=== PATIENT | male | born 1995 | race Caucasian/White ===

== ENCOUNTER 2017-05-04 17:47 | Emergency (ER) | payer BC ==
--- NOTE | 2017-05-04 18:18 | ER Document Report ---
ED Psych Disorder / Suicide - General Chief Complaint: Suicidal Ideation Stated Complaint: SUICIDAL IDEATIONS Time Seen by Provider: 05/04/17 18:15 Mode of Arrival: Ambulatory Information source: Patient, Relative TRAVEL OUTSIDE OF THE [place] IN LAST 30 DAYS: No - HPI Patient complains to provider of: Suicidal ideation Onset was: Gradual Quality of pain: No pain Suicide Risk Factors: Depressed, Male, No spouse Situational problems related to: Significant other Associated symptoms: Depressed, Flat affect Similar symptoms previously: No Recently seen / treated by doctor: No Notes: Patient is a 22-year-old male who presents to the emergency room today accompanied by his father and 2 brothers with complaints of having suicidal thoughts over the past few weeks since breaking up with his girlfriend of 2 years, patient reports he is having a rough time adjusting to this change in his been having very consistent thoughts of self-harm, he does not currently have an active plan to harm himself but he voiced these concerns to family members who brought him in for an evaluation, patient has no history of mental illness, no previous suicide attempts, he is not currently on any medications, there is a strong family history of suicide with an uncle killing his and then killing himself and a nephew who also killed himself - Related Data Allergies/Adverse Reactions: No Known Allergies Allergy (Verified 05/04/17 18:00) Past Medical History - General Information source: Patient - Social History Smoking Status: Unknown if Ever Smoked Family History: Reviewed & Not Pertinent Patient has suicidal ideation: Yes Patient has homicidal ideation: No Renal/ Medical History: Denies: Hx Peritoneal Dialysis Past Surgical History: Reports: Hx Orthopedic Surgery - right knee - Immunizations Hx Diphtheria, Pertussis, Tetanus Vaccination: Yes Review of Systems - Review of Systems Constitutional: No symptoms reported EENT: No symptoms reported Cardiovascular: No symptoms reported Respiratory: No symptoms reported Gastrointestinal: No symptoms reported Genitourinary: No symptoms reported Male Genitourinary: No symptoms reported Musculoskeletal: No symptoms reported Skin: No symptoms reported Hematologic/Lymphatic: No symptoms reported Neurological/Psychological: See HPI -: Yes All other systems reviewed and negative Physical Exam - Vital signs Vitals: Temp Pulse Resp BP Pulse Ox 98.5 F 74 22 H 133/58 H 99 05/04/17 18:00 05/04/17 18:00 05/04/17 18:00 05/04/17 18:00 05/04/17 18:00 Interpretation: Normal - General General appearance: Appears well, Alert - HEENT Head: Normocephalic, Atraumatic Eyes: Normal Pupils: PERRL - Respiratory Respiratory status: No respiratory distress Chest status: Nontender Breath sounds: Normal Chest palpation: Normal - Cardiovascular Rhythm: Regular Heart sounds: Normal auscultation Murmur: No - Abdominal Inspection: Normal Distension: No distension Bowel sounds: Normal Tenderness: Nontender Organomegaly: No organomegaly - Back Back: Normal, Nontender - Extremities General upper extremity: Normal inspection, Nontender, Normal color, Normal ROM , Normal temperature General lower extremity: Normal inspection, Nontender, Normal color, Normal ROM , Normal temperature, Normal weight bearing. No: Gely's sign - Neurological Neuro grossly intact: Yes Cognition: Normal Orientation: AAOx4 [place] Coma Scale Eye Opening: Spontaneous [place] Coma Scale Verbal: Oriented [place] Coma Scale Motor: Obeys Commands [place] Coma Scale Total: 15 Speech: Normal Motor strength normal: LUE, RUE, LLE, RLE Sensory: Normal - Psychological Associated symptoms: Depressed, Flat affect - Skin Skin Temperature: Warm Skin Moisture: Dry Skin Color: Normal Course - Re-evaluation Re-evalutation: 05/04/17 19:30 Patient with persistent suicidal thoughts after recent breakup with his girlfriend of 2 years, strong family history of suicide in uncle and cousin or nephew, no current treatment, family members are quite concerned about his well- being and brought him to the emergency room for evaluation, IVC paperwork was completed on patient to ensure his safety, patient will remain in the emergency room tonight for further evaluation and recommendations by mental health team in the morning, he is otherwise medically stable for transport or discharge - Vital Signs Vital signs: Temp Pulse Resp BP Pulse Ox 98.5 F 74 22 H 133/58 H 99 05/04/17 18:00 05/04/17 18:00 05/04/17 18:00 05/04/17 18:00 05/04/17 18:00 - Laboratory Result Diagrams: 05/04/17 18:44 05/04/17 18:44 Laboratory results interpreted by me: 05/04/17 18:44 Urine Urobilinogen 2.0 H - EKG Interpretation by Me EKG shows normal: Sinus rhythm Rate: Normal Rhythm: NSR [place]/QRS: IVCD Discharge - Discharge Clinical Impression: Suicidal ideations Condition: Stable Disposition: PSYCH HOSP/UNIT
[2017-05-04 19:15] LABS: ABSOLUTE BASOPHILS # (AUTO) 0.1 10^3/uL (0.0-0.2); ABSOLUTE EOSINOPHILS # (AUTO) 0.5 10^3/uL (0.0-0.6); ABSOLUTE LYMPHOCYTES (AUTO) 1.9 10^3/uL (0.5-4.7); ABSOLUTE MONOCYTES (AUTO) 0.8 10^3/uL (0.1-1.4); ABSOLUTE NEUT (AUTO) 5.9 10^3/uL (1.7-8.2); BASOPHILS % (AUTO) 0.8 % (0-2); HEMOGLOBIN 16.3 g/dL (13.5-17.0); HGB HCT DIFFERENCE 1.9; LYMPHOCYTES % (AUTO) 20.9 % (13-45); MEAN CORPUSCULAR HEMOGLOBIN 29.9 pg (27.0-33.4); MEAN CORPUSCULAR HGB CONC 34.6 g/dL (32.0-36.0); MEAN CORPUSCULAR VOLUME 87 fl (80-97); MONOCYTES % (AUTO) 8.9 % (3-13); RED BLOOD COUNT 5.43 10^6/uL (4.35-5.55); RED CELL DISTRIBUTION WIDTH 13.3 % (11.5-14.0); SEGMENTED NEUTROPHILS % (AUTO) 64.4 % (42-78); WHITE BLOOD COUNT 9.1 10^3/uL (4.0-10.5)
[2017-05-04 19:24] LABS: AMORPHOUS SEDIMENT,URINE 2+ /HPF; APPEARANCE,URINE CLOUDY; BILIRUBIN,URINE NEGATIVE (NEGATIVE); GLUCOSE, URINE NEGATIVE (NEGATIVE); KETONES,URINE NEGATIVE (NEGATIVE); LEUKOCYTE ESTERASE,URINE NEGATIVE (NEGATIVE); NITRITE,URINE NEGATIVE (NEGATIVE); PROTEIN,URINE NEGATIVE (NEGATIVE); URINE SPECIFIC GRAVITY 1.015
[2017-05-04 19:28] LABS: ALANINE AMINOTRANSFERASE 33 U/L (21-72); ALBUMIN 4.6 g/dL (3.5-5.0); ALKALINE PHOSPHATASE 87 U/L (38-126); ANION GAP 13 (5-19); ASPARTATE AMINO TRANSFERASE 20 U/L (17-59); BILIRUBIN,DIRECT 0.3 mg/dL (0.0-0.4); BILIRUBIN,TOTAL 0.6 mg/dL (0.2-1.3); BLOOD UREA NITROGEN 9 mg/dL (7-20); CALCIUM 9.9 mg/dL (8.4-10.2); CARBON DIOXIDE 26 mmol/L (22-30); CHLORIDE 104 mmol/L (98-107); CREATININE RESULT 0.88 mg/dL (0.52-1.25); GLUCOSE 101 mg/dL (75-110); POTASSIUM 4.4 mmol/L (3.6-5.0); SODIUM 143.3 mmol/L (137-145); TOTAL PROTEIN 7.4 g/dL (6.3-8.2)
[2017-05-04 19:32] LABS: ALCOHOL < 10 mg/dL (NONE DETECTED)
[2017-05-04 19:35] LABS: URINE BARBITURATES SCREEN NEGATIVE; URINE METHADONE SCREEN NEGATIVE; URINE OPIATES LOW NEGATIVE; URINE PHENCYCLIDINE SCREEN NEGATIVE
--- NOTE | 2017-05-04 21:30 | EKG REPORT ---
SEVERITY:- ABNORMAL ECG - SINUS RHYTHM NONSPECIFIC INTRAVENTRICULAR CONDUCTION DELAY : Confirmed by: Elias Walter MD 04-May-2017 21:29:47
[2017-05-04] MEDS ORDERED: LORAZEPAM 1 MG TABLET PO SCH (22:00)
--- NOTE | 2017-05-05 09:44 | ER Document Report ---
ED Psych Disorder / Suicide - General Mode of Arrival: Ambulatory Information source: Patient, Parent - father TRAVEL OUTSIDE OF THE [place] IN LAST 30 DAYS: No - HPI Patient complains to provider of: Suicidal ideation Onset: Last week Suicide Risk Factors: Depressed, Male Situational problems related to: Significant other - fiance of 2 years terminated relationship Normal mood: No Associated symptoms: Depressed, Flat affect Similar symptoms previously: No Recently seen / treated by doctor: No <CHASE HOFFMANN - Last Filed: 05/05/17 09:47> <MELISSA PEREZ - Last Filed: 05/05/17 10:01> - General Chief Complaint: Suicidal Ideation Stated Complaint: SUICIDAL IDEATIONS Time Seen by Provider: 05/04/17 18:15 - HPI Notes: Patient is a 22-year-old male who presented via family members last night due to concerns over "bad thoughts swirling in my mind." Patient states this is the first time in his life he has felt suicidal. He states he does not want to by suicide, but also states he does not see a way out. Discussed with patient the etiology of his suicidal thoughts, which he attributes to a recent separation from his fikerline. He states he resided with his fikerline and her child whom he lives as his own. Patient reports he suspected she was having an affair and confronted her. Patient reports the rajat told him she needed space so he moved out and in with his family. Patient reports he did not expect to be this distraught. Patient states his life as he thought it was going to be has completely changed. Patient does state he still goes to work full-time at [employer]. Discussed with patient how he deals with his emotions, which he states he usually does not. Discussed with patient the prospect of engaging in outpatient counseling, but she states he was hesitant. Discussed his thoughts and feelings surrounding counseling and provided psychoeducation as to how it may help in regards to establishing coping skills and assist in moving beyond his initial grief over the end of the relationship. Discussed with patient that counseling can be challenging but also rewarding. Patient did state he would be willing to go to counseling and give it a chance. Patient provided verbal consent to speak with his father. Patient denies any prior mental health history and denies any mental health history within his family however reports there is a history of murder suicide from his uncle who killed his and eventually committed suicide as well as his son. Patient denies wanting to by suicide and states he is willing to engage in outpatient counseling. Father, Rigo Best states: the patient has not been himself for over a year and has put everything he has into this relationship. Father states this is a pattern for the patient and girlfriend, to accuse her of cheating, break up, then get back together with no trust. Father states the patient is currently residing in his home (with mother) and states there are no firearms in the home. Father states the patient has good days and bad days. Example, Friday he was up doing things and then yesterday laid in bed all day. Father states he finally disclosed to the family that he thought about suicide. Father states he does not think that he would follow through, and knows that the patient did not have any plans in regards to suicide method. Father states the patient has been hesitant to open up and go to counseling, but states he feels that is what he needs. Father states if the patient is able to be discharged, he will provide increased supervision and support and return if any symptoms worsen. Patient is alert and oriented. Mood is depressed with flat affect. Patient reports suicidal ideations but denies intent or means. Patient denies homicidal ideations, intent, plan, means. Patient denies A/VH; delusions not noted. Thought processes were organized but guarded. Conversational speech was within normal limits for rate, tone, and prosody. Intellectual abilities were estimated within average range. Attention and focus were fair. Insight, judgment, impulse control were poor to fair. Unspecified depressive disorder Patient's overall presenting symptoms are similar to that of a depressive disorder and cause significant distress in most domains of his life. At this time and in the setting there is not enough information to make a more specific diagnosis. Patient is psychiatrically cleared for discharge. Patient is recommended for recent IVC to discharge directly to his father. Patient and family are in agreement to the following safety precautions and plan of care: 1) Follow up with [facility] 05/05/17 TONIGHT at 6pm 2) Do not have any access to weapons 3) Continue work and set goals 4) Focus on future and begin to identify what he wants his future to include 5) Communicate with family re: his symptoms 6) Check in via text/phone with father throughout the day and evening 7) Return if symptoms worsen (CHASE HOFFMANN) - Related Data Allergies/Adverse Reactions: No Known Allergies Allergy (Verified 05/04/17 18:00) Past Medical History - General Information source: Patient, Parent - Social History Smoking Status: Unknown if Ever Smoked Cigarette use (# per day): No Chew tobacco use (# tins/day): No Smoking Education Provided: No Family History: Reviewed & Not Pertinent Patient has suicidal ideation: Yes - passive, no plan Patient has homicidal ideation: No Renal/ Medical History: Denies: Hx Peritoneal Dialysis Past Surgical History: Reports: Hx Orthopedic Surgery - right knee - Immunizations Hx Diphtheria, Pertussis, Tetanus Vaccination: Yes <CHASE HOFFMANN - Last Filed: 05/05/17 09:47> - Vital signs Vitals: Temp Pulse Resp BP Pulse Ox 98.5 F 74 22 H 133/58 H 99 05/04/17 18:00 05/04/17 18:00 05/04/17 18:00 05/04/17 18:00 05/04/17 18:00 Course - Laboratory Result Diagrams: 05/04/17 18:44 05/04/17 18:44 <CHASE HOFFMANN - Last Filed: 05/05/17 09:47> - Laboratory Result Diagrams: 05/04/17 18:44 05/04/17 18:44 <MELISSA PEREZ - Last Filed: 05/05/17 10:01> - Re-evaluation Re-evalutation: 05/05/17 09:58 Patient seen on morning rounds. He is not having suicidal thoughts. He has a supportive family. We have arranged for follow-up at counseling. Patient will be discharged home. (MELISSA PEREZ) - Vital Signs Vital signs: Temp Pulse Resp BP Pulse Ox 98.0 F 70 17 127/63 H 100 05/05/17 06:00 05/05/17 06:00 05/05/17 06:00 05/05/17 06:00 05/05/17 06:00 - Laboratory Laboratory results interpreted by me: 05/04/17 05/04/17 18:44 18:44 Urine Urobilinogen 2.0 H Salicylates < 1.0 L Acetaminophen < 10 L Discharge <SHUN,CHASE - Last Filed: 05/05/17 09:47> <MELISSA PEREZ - Last Filed: 05/05/17 10:01> - Discharge Clinical Impression: Suicidal ideations Condition: Stable Disposition: HOME, SELF-CARE Additional Instructions: Depression Your evaluation reveals that you have mental depression. While symptoms may be vague, they often include disturbance of sleep, fatigue, loss of appetite , and general loss of interest in life. While depression may be a side effect of drugs, or a reaction to a major change in your life, many cases have no known cause. If depression is acute, and related to a major loss in your life, you can expect it to clear completely with time. If you have been depressed a long time , are prone to repeated bouts of depression or low mood, or have been thinking of suicide, get help. Depression can be treated with anti-depressant medication and counselling. Long-term depression will often take a few weeks to clear, even with appropriate medication. Follow-up care is important. Contact your physician, the hospital emergency center, crisis line, or your counsellor if you are losing control or having self-destructive thoughts. We have scheduled you an appointment with [facility] for [facility] at 6 PM. Please arrive at 530 to complete paperwork and begin the process. You have been provided a list of resources to assist you, to include mobile crisis. Please return if your symptoms worsen. Forms: Return to Work Referrals: [facility] [Provider Group] - 05/05/17 5:30 pm
[2017-05-05 10:30] VITALS: BP 122/65
== END 2017-05-05 10:30 | disposition home or self-care (01) ==
LOC: ER 17:47
DX: R45.851 Suicidal ideations (principal); F32.9 Major depressive disorder, single episode, unspecified
CPT/HCPCS: 36415; 80053; 80307; 81001; 85025; 93005; 93010; 99285

== ENCOUNTER → 2017-06-04 | Outpatient (CLI) | payer BC | LOC: OD 09:11 | PROVIDERS: ATTEND Nurse Practitioner Psychiatric/Mental Health | DX: F33.9 Major depressive disorder, recurrent, unspecified (principal) | CPT/HCPCS: 36415; 80164 ==

== ENCOUNTER → 2017-06-26 | Outpatient (CLI) | payer BC | LOC: OD 07:42 | PROVIDERS: ATTEND Nurse Practitioner Psychiatric/Mental Health | DX: F33.9 Major depressive disorder, recurrent, unspecified (principal) | CPT/HCPCS: 36415; 80164 ==

== ENCOUNTER 2017-11-10 18:39 | Emergency (ER) | payer BC ==
[2017-11-10] MEDS ORDERED: IBUPROFEN 800 MG TABLET PO ONE (20:19)
--- NOTE | 2017-11-10 20:19 | ER Document Report ---
HPI - HPI Pain Level: 4 Context: Patient is a 22-year-old male presents emergency department complaining of sore throat on and off for the past 7 days. Patient denies any cough, seasonal allergies. Denies any recent sick contacts. States it hurts mostly when he swallows. Denies any fevers, chills, neck swelling Past Medical History - Social History Smoking Status: Current Every Day Smoker Family History: Reviewed & Not Pertinent Renal/ Medical History: Denies: Hx Peritoneal Dialysis Psychiatric Medical History: Reports: Hx Borderline Personality Disorder - diagnosed 05/15/2017, Hx Depression Past Surgical History: Reports: Hx Orthopedic Surgery - right knee - Immunizations Hx Diphtheria, Pertussis, Tetanus Vaccination: Yes Vertical Provider Document - CONSTITUTIONAL Agree With Documented VS: Yes Notes: PHYSICAL EXAM GENERAL: Alert, interacts well. HEENT: NCAT, pale conjunctiva, extraocular movements intact, pupils PERRL. external ear normal, no evidence of external auditory canal tenderness, blood/ drainage, cerumen impaction, TM intact without evidence of effusion, bulging, injection, MMM, Uvula midline. Airway patent. No evidence of tonsillar enlargement, peritonsillar abscess, retropharyngeal abscess. NECK: Full range of motion. Supple. Trachea midline. LUNGS: Clear to auscultation bilaterally, no wheezes, rales, or rhonchi. No respiratory distress. HEART: Regular rate and rhythm. No murmurs, gallops, or rubs. NEUROLOGICAL: Alert and oriented x4. Normal speech. PSYCH: Normal affect, normal mood. SKIN: Warm, dry, normal turgor. No rashes or lesions noted. - INFECTION CONTROL TRAVEL OUTSIDE OF THE [place] IN LAST 30 DAYS: No Course - Re-evaluation Re-evalutation: 11/10/17 21:08 Presentation is most consistent with a viral upper respiratory infection. Patient is overall well appearance, vitals within normal limits, well-hydrated. Patient denies any headache, neck pain, and has no evidence of meningismus on examination. Lungs are clear bilaterally. No evidence of respiratory distress. Based on clinical exam and history, I do not suspect an acute pneumonia, meningitis, strep pharyngitis, or an acute encephalitis. No laboratory or imaging testing is indicated at this time. Will discharge patient with return precautions and followup recommendations. They are in agreement this plan have verbalized understanding return precautions. - Vital Signs Vital signs: Temp Pulse Resp BP Pulse Ox 98.3 F 95 16 133/62 H 97 11/10/17 18:47 11/10/17 18:47 11/10/17 18:47 11/10/17 18:47 11/10/17 18:47 Discharge - Discharge Clinical Impression: Sore throat Condition: Good Disposition: HOME, SELF-CARE Instructions: Sore Throat ([facility]) Additional Instructions: You can take [id number] antihistamine (Claritin, benadryl), theraflu, motrin Referrals: BETH FOX MD [ACTIVE STAFF] - Follow up in 1 week
[2017-11-10 21:11] VITALS: BP 128/79
== END 2017-11-10 21:14 | disposition home or self-care (01) ==
LOC: ER 18:39
DX: J02.9 Acute pharyngitis, unspecified (principal); F17.200 Nicotine dependence, unspecified, uncomplicated
CPT/HCPCS: 87070; 87880; 99283